=== PATIENT | female | born 1990 | race Caucasian/White ===

== ENCOUNTER → 2017-04-15 | Outpatient (CLI) | payer OTHER ==
[~2017-04-15] MED LIST: CITA20 PO; HYDACE5 PO; IBUP800 PO; IRON150C PO; OXYACE5T PO; Verotin-Gr Cap1 EACH PO
[2017-04-16 10:32] LABS: Source Vaginal/Cervical
[2017-04-29 14:13] LABS: HPV Genotype 16 Not Detected (NOTDET); HPV Genotype 18 Not Detected (NOTDET); HPV High Risk Other Detected (NOTDET)
== END ==
LOC: LAB 15:24
PROVIDERS: Obstetrics & Gynecology
DX: Z11.3 Encounter for screening for infections with a predominantly sexual mode of transmission (principal); Z34.81 Encounter for supervision of other normal pregnancy, first trimester
CPT/HCPCS: 87491; 87591; 87624; G0123

== ENCOUNTER → 2017-08-27 | Outpatient (CLI) | payer OTHER ==
[~2017-08-27] MED LIST changes: -CITA20 PO; -IRON150C PO
[2017-08-28 10:11] LABS: Candida species (DNA Probe) Negative (NEGATIVE); G. vaginalis (DNA Probe) Positive (NEGATIVE); T. vaginalis (DNA Probe) Negative (NEGATIVE)
== END | disposition home or self-care (01) ==
LOC: LAB 16:20 → LAB SHORT 16:20
PROVIDERS: Obstetrics & Gynecology
DX: N89.8 Other specified noninflammatory disorders of vagina (principal)
CPT/HCPCS: 87480; 87510; 87660

== ENCOUNTER → 2017-09-30 | Outpatient (CLI) | payer OTHER | END | disposition home or self-care (01) | LOC: LAB 18:29 → LAB SHORT 18:29 | DX: Z34.80 Encounter for supervision of other normal pregnancy, unspecified trimester (principal) | CPT/HCPCS: 87081; 87653 ==

== ENCOUNTER → 2018-05-26 | Outpatient (CLI) | payer OTHER ==
[~2018-05-26] MED LIST changes: +CITA20 PO; +IRON150C PO
[2018-05-29 15:07] LABS: HPV 16 Negative (Negative); HPV 18 Negative (Negative); HPV OTHER HR TYPES Positive (Negative)
== END | disposition home or self-care (01) ==
LOC: LAB 15:58 → LAB SHORT 15:58
PROVIDERS: Obstetrics & Gynecology
DX: Z01.419 Encounter for gynecological examination (general) (routine) without abnormal findings (principal)
CPT/HCPCS: 87624; 87625; G0123

== ENCOUNTER → 2018-07-08 | Outpatient (CLI) | payer OTHER | END | disposition home or self-care (01) | LOC: PLD 12:48 → LAB SHORT 12:48 | DX: R87.612 Low grade squamous intraepithelial lesion on cytologic smear of cervix (LGSIL) (principal); R87.810 Cervical high risk human papillomavirus (HPV) DNA test positive | CPT/HCPCS: 88305 ==

== ENCOUNTER → 2018-08-07 | Outpatient (CLI) | payer OTHER ==
[2018-08-08 02:53] LABS: Adenovirus F 40/41 Not Detected (NOT DETECT); Astrovirus Not Detected (NOT DETECT); Campylobacter Sp Not Detected (NOT DETECT); Cryptosporidium Not Detected (NOT DETECT); Cyclospora Cayetanensis Not Detected (NOT DETECT); E. Coli O157 Not Detected (NOT DETECT); Entamoeba Histolytica Not Detected (NOT DETECT); Enteroaggregative E. coli-EAEC Not Detected (NOT DETECT); Enteropathogenic E. coli-EPEC Not Detected (NOT DETECT); Enterotoxigenic E. coli-ETEC Not Detected (NOT DETECT); Giardia Lamblia Not Detected (NOT DETECT); Norovirus GI/GII Not Detected (NOT DETECT); Plesiomonas Shigelloides Not Detected (NOT DETECT); Salmonella Sp Not Detected (NOT DETECT); Sapovirus Not Detected (NOT DETECT); Shiga Toxin-prod E. coli-STEC Not Detected (NOT DETECT); Shigella/Enteroin E. coli-EIEC Not Detected (NOT DETECT); Vibrio Cholerae Not Detected (NOT DETECT); Vibrio Sp Not Detected (NOT DETECT); Yersinia Enterocolitica Not Detected (NOT DETECT)
[2018-08-08 02:54] LABS: Rotavirus A Detected (NOT DETECT)
== END | disposition home or self-care (01) ==
LOC: LAB SHORT 18:03 → LAB 18:03
PROVIDERS: General Practice
DX: K52.9 Noninfective gastroenteritis and colitis, unspecified (principal)
CPT/HCPCS: 87507

== ENCOUNTER → 2019-07-20 | Outpatient (CLI) | payer OTHER ==
[2019-07-21 12:22] LABS: Candida species (DNA Probe) Negative (NEGATIVE); G. vaginalis (DNA Probe) Positive (NEGATIVE); T. vaginalis (DNA Probe) Negative (NEGATIVE)
[2019-07-22 14:10] LABS: CHLAMYDIA TRACHOMATIS, NAA Negative (Negative); HPV 16 Negative (Negative); HPV 18 Negative (Negative); HPV OTHER HR TYPES Positive (Negative); NEISSERIA GONORRHOEAE, NAA Negative (Negative)
== END | disposition home or self-care (01) ==
LOC: LAB 15:45 → LAB SHORT 15:45
PROVIDERS: Obstetrics & Gynecology
DX: Z01.419 Encounter for gynecological examination (general) (routine) without abnormal findings (principal); Z11.3 Encounter for screening for infections with a predominantly sexual mode of transmission; N76.0 Acute vaginitis
CPT/HCPCS: 87480; 87510; 87660

== ENCOUNTER → 2019-09-16 | Outpatient (CLI) | payer OTHER | END | disposition home or self-care (01) | LOC: LAB SHORT 08:32 → PLD 08:32 | DX: N87.1 Moderate cervical dysplasia (principal) | CPT/HCPCS: 88305 ==